=== PATIENT | male | born 1965 ===

== ENCOUNTER 2024-05-03 11:26 | Day surgery (SDC) | payer BC ==
[~2024-05-03 11:26] MED LIST: Propofol 200 MG/20 ML SDV ONE; Sodium Chloride 0.9% 10 ML Syringe FLUSH PRN
[2024-05-03] MEDS: Lactated Ringers 1,000 ML IV SCH (12:39)
[2024-05-03] MEDS ORDERED: Propofol 200 MG/20 ML SDV ONE (13:24)
== END 2024-05-03 14:02 ==
LOC: LL.SDS 11:26
PROVIDERS: ATTEND Surgery
DX: Z12.11 Encounter for screening for malignant neoplasm of colon (principal); D12.3 Benign neoplasm of transverse colon; F32.A Depression, unspecified; E78.5 Hyperlipidemia, unspecified; E11.9 Type 2 diabetes mellitus without complications; Z79.84 Long term (current) use of oral hypoglycemic drugs; Z79.899 Other long term (current) drug therapy
CPT/HCPCS: 00811; 82947; J2704; J7120